=== PATIENT | female | born 1985 | race Caucasian/White ===

== ENCOUNTER → 2019-09-24 | Outpatient (CLI) | payer OTHER ==
--- NOTE | 2019-09-24 16:27 | KCIC ---
PELVIS COMPLETE History: Frequent menstruation. Comparison: None. Technique: Grayscale and color Doppler imaging of the pelvis was performed using transabdominal technique. Findings: The uterus measures 8.7 x 4.0 x 6.0 cm in length. Uterus has an unremarkable appearance. The endometrial stripe measures 9.2 mm, within normal limits. Right ovary measures 2.2 x 1.7 x 2.4 cm and is unremarkable. Left ovary measures 3.4 x 2.4 x 2.8 cm and is unremarkable. No adnexal masses are seen. No free fluid. IMPRESSION: 1. Unremarkable pelvic ultrasound. Electronically signed by: Lorne Yanez DO (09/24/2019 4:24 PM) [facility]
== END | disposition home or self-care (01) ==
LOC: KCIC US 13:19
PROVIDERS: ATTEND Obstetrics & Gynecology
DX: N92.0 Excessive and frequent menstruation with regular cycle (principal)
CPT/HCPCS: 76856